=== PATIENT | female | born 1975 | race Caucasian/White ===

== ENCOUNTER 2019-12-08 22:21 | Inpatient (IN) ==
[2019-12-08] MEDS ORDERED: Isovue-370 500 ML BOTTLE IVP ONE (22:46)
[2019-12-08 22:59] LABS: Basophils # 0.1 K/mcL (0.0-0.2); Basophils % 0.7 %; Eosinophils # 0.5 K/mcL (0.0-0.6); Eosinophils % 4.5 %; Hemoglobin 13.6 g/dL (11.5-15.4); Immature Granulocytes % 0.8 % (0-4); Lymphocytes % 18.8 %; Mean Corpuscular HGB Conc 33.2 g/dL (31.6-35.5); Mean Corpuscular Hemoglobin 29.6 pg (28.0-33.3); Mean Corpuscular Volume 89.3 fL (83.0-100.0); Monocytes # 0.9 K/mcL (0.0-1.3); Neutrophils # 7.2 K/mcL (1.6-8.9); Platelet Count 196 K/mcL (140-400); Red Blood Count 4.59 M/mcL (3.82-4.97); Red Cell Distribution Width 15.7 % (11.5-14.5); Segmented Neutrophils % 67.2 %; White Blood Count 10.7 K/mcL (4.3-11.1)
[2019-12-08 23:08] LABS: Activated Partial Thrombo Time 32.3 Seconds (26.0-36.0)
[2019-12-08] MEDS ORDERED: Lactulose Oral Soln 20 GM/30 ML UDC PO ONE (23:14)
[2019-12-08 23:31] LABS: Hepatitis B Surface Antigen Nonreactive (Nonreactive)
[2019-12-08 23:33] LABS: Alanine Aminotransferase 927 Units/L (7-52); Albumin 3.6 g/dL (3.5-5.7); Albumin/Globulin Ratio 1.3 (1.1-2.2); Alkaline Phosphatase 280 Units/L (34-104); Aspartate Amino Transferase 1343 Units/L (13-39); BUN/Creatinine Ratio 15 (6-26); Bilirubin,Direct 6.4 mg/dL (0.0-0.2); Bilirubin,Indirect 3.5 mg/dL (0.0-1.0); Bilirubin,Total 9.9 mg/dL (0.3-1.0); Blood Urea Nitrogen 9 mg/dL (6-20); Calcium 8.2 mg/dL (8.6-10.3); Carbon Dioxide 20 mEq/L (23-29); Chloride 109 mEq/L (98-107); Creatine Kinase 30 Units/L (30-223); Globulin 2.7 g/dL (2.4-3.5); Glucose 105 mg/dL (70-105); Lipase 60 Units/L (11-82); Osmolality,Calculated 283 (280-300); Potassium 3.4 mEq/L (3.5-5.1); Sodium 137 mEq/L (136-145); Total Protein 6.3 g/dL (6.4-8.9); Troponin I < 0.03 ng/mL (< 0.04); eGFR For African Americans > 60 (> 60); eGFR For Non-African Americans > 60 (> 60)
[2019-12-09] MEDS ORDERED: 0.9 % Sodium Chloride 1,000 ML IVC ONE
[2019-12-09 00:01] LABS: Hepatitis B Core IgM Nonreactive (Nonreactive)
[2019-12-09 00:02] LABS: Hepatitis A Antibody IgM Nonreactive (Nonreactive)
[2019-12-09 00:07] LABS: Prothrombin Time 11.6 Seconds (9.4-12.1)
[2019-12-09 00:10] LABS: Acetaminophen < 10 mcg/mL (10-20)
[2019-12-09 00:11] LABS: Bilirubin,Urine Large (Negative); Blood,Urine Negative (Negative); Clarity,Urine Clear (Clear); Color,Urine Orange (Yellow); Glucose,Urine (UA) Normal (Normal); Ketones,Urine Negative (Negative); Leukocyte Esterase,Urine Negative (Negative); Nitrite,Urine Negative (Negative); PH,Urine 6.5 pH Units (5.0-8.0); Protein,Urine Negative (Neg-Trace); Specific Gravity,Urine 1.016 (1.010-1.025); Urobilinogen,Urine Normal (Normal)
[2019-12-09] MEDS ORDERED: Famotidine 20 MG/2 ML VIAL IVP ONE (01:08)
[2019-12-09] MEDS ORDERED: Pantoprazole 40 MG VIAL IVP ONE (01:08)
[2019-12-09 01:14] LABS: Hepatitis C Virus Antibody Reactive (Nonreactive)
[2019-12-09] MEDS ORDERED: Naloxone 0.4 MG/ML INJ IVP PRN (02:57)
[2019-12-09] MEDS ORDERED: Ondansetron 4 MG/2 ML VIAL IVP PRN (02:57)
[2019-12-09] MEDS: Nicotine 21 MG PATCH.TD24 TD SCH (05:00)
[2019-12-09 08:54] LABS: Basophils # 0.1 K/mcL (0.0-0.2); Basophils % 0.6 %; Eosinophils # 0.4 K/mcL (0.0-0.6); Eosinophils % 4.3 %; Hematocrit 40.2 % (35.3-44.9); Hemoglobin 13.3 g/dL (11.5-15.4); Immature Granulocytes % 0.9 % (0-4); Lymphocytes # 1.9 K/mcL (0.6-4.6); Lymphocytes % 21.9 %; Mean Corpuscular HGB Conc 33.1 g/dL (31.6-35.5); Mean Corpuscular Hemoglobin 29.5 pg (28.0-33.3); Mean Corpuscular Volume 89.1 fL (83.0-100.0); Mean Platelet Volume 11.9 fL (9.4-12.4); Monocytes # 0.7 K/mcL (0.0-1.3); Monocytes % 8.4 %; Neutrophils # 5.4 K/mcL (1.6-8.9); Platelet Count 170 K/mcL (140-400); Red Blood Count 4.51 M/mcL (3.82-4.97); Red Cell Distribution Width 15.9 % (11.5-14.5); Segmented Neutrophils % 63.9 %; White Blood Count 8.5 K/mcL (4.3-11.1)
[2019-12-09 08:56] LABS: INR 1.1; Prothrombin Time 12.9 Seconds (9.4-12.1)
[2019-12-09 08:59] LABS: Activated Partial Thrombo Time 34.4 Seconds (26.0-36.0)
[2019-12-09 09:20] LABS: Alanine Aminotransferase 859 Units/L (7-52); Albumin 3.1 g/dL (3.5-5.7); Albumin/Globulin Ratio 1.3 (1.1-2.2); Alkaline Phosphatase 239 Units/L (34-104); Aspartate Amino Transferase 1315 Units/L (13-39); BUN/Creatinine Ratio 13 (6-26); Bilirubin,Direct 6.3 mg/dL (0.0-0.2); Bilirubin,Indirect 3.3 mg/dL (0.0-1.0); Bilirubin,Total 9.6 mg/dL (0.3-1.0); Blood Urea Nitrogen 7 mg/dL (6-20); Calcium 8.1 mg/dL (8.6-10.3); Carbon Dioxide 20 mEq/L (23-29); Chloride 113 mEq/L (98-107); Globulin 2.3 g/dL (2.4-3.5); Glucose 88 mg/dL (70-105); Magnesium 1.9 mg/dL (1.6-2.6); Osmolality,Calculated 287 (280-300); Potassium 3.5 mEq/L (3.5-5.1); Sodium 140 mEq/L (136-145); Total Protein 5.4 g/dL (6.4-8.9); eGFR For African Americans > 60 (> 60); eGFR For Non-African Americans > 60 (> 60)
[2019-12-09] MEDS: Pantoprazole 40 MG VIAL IVP SCH (18:28)
[2019-12-10] MEDS ORDERED: Albuterol 2.5 MG/3 ML NEBULIZER IH PRN (00:34)
[2019-12-10] MEDS: Pantoprazole 40 MG VIAL IVP SCH ×2 (05:17→17:41)
[2019-12-10] MEDS: Nicotine 21 MG PATCH.TD24 TD SCH (07:29)
[2019-12-10] MEDS ORDERED: diazePAM 10 MG TABLET PO PRN (08:29)
[2019-12-10 08:57] LABS: White Blood Count 9.4 K/mcL (4.3-11.1)
[2019-12-10 08:58] LABS: Basophils # 0.1 K/mcL (0.0-0.2); Basophils % 0.6 %; Eosinophils # 0.4 K/mcL (0.0-0.6); Eosinophils % 4.1 %; Hematocrit 37.4 % (35.3-44.9); Hemoglobin 12.9 g/dL (11.5-15.4); Immature Granulocytes % 0.7 % (0-4); Lymphocytes # 1.8 K/mcL (0.6-4.6); Lymphocytes % 18.9 %; Mean Corpuscular HGB Conc 34.5 g/dL (31.6-35.5); Mean Corpuscular Hemoglobin 29.6 pg (28.0-33.3); Mean Corpuscular Volume 85.8 fL (83.0-100.0); Mean Platelet Volume 12.2 fL (9.4-12.4); Monocytes # 0.9 K/mcL (0.0-1.3); Monocytes % 9.9 %; Neutrophils # 6.1 K/mcL (1.6-8.9); Platelet Count 178 K/mcL (140-400); Red Blood Count 4.36 M/mcL (3.82-4.97); Red Cell Distribution Width 16.2 % (11.5-14.5); Segmented Neutrophils % 65.8 %
[2019-12-10] MEDS ORDERED: *HR* Propofol 200 MG/20 ML VIAL IVP ONE (08:59)
[2019-12-10] MEDS: Multivit/Ca/Min/Fe/FA 1 TAB TABLET PO SCH (09:15)
[2019-12-10] MEDS: FLUoxetine 20 MG CAPSULE PO SCH (09:15)
[2019-12-10] MEDS: BuPROPion XL (24 HR) 150 MG TABLET PO SCH (09:15)
[2019-12-10 09:36] LABS: Alanine Aminotransferase 891 Units/L (7-52); Albumin 3.2 g/dL (3.5-5.7); Albumin/Globulin Ratio 1.5 (1.1-2.2); Alkaline Phosphatase 244 Units/L (34-104); Aspartate Amino Transferase 1356 Units/L (13-39); BUN/Creatinine Ratio 12 (6-26); Bilirubin,Total 10.6 mg/dL (0.3-1.0); Blood Urea Nitrogen 8 mg/dL (6-20); Calcium 8.1 mg/dL (8.6-10.3); Carbon Dioxide 22 mEq/L (23-29); Chloride 110 mEq/L (98-107); Globulin 2.1 g/dL (2.4-3.5); Glucose 112 mg/dL (70-105); Osmolality,Calculated 285 (280-300); Potassium 3.4 mEq/L (3.5-5.1); Sodium 138 mEq/L (136-145); Total Protein 5.3 g/dL (6.4-8.9); eGFR For African Americans > 60 (> 60); eGFR For Non-African Americans > 60 (> 60)
[2019-12-10] MEDS: 0.9 % Sodium Chloride 1,000 ML IVC SCH (11:31)
[2019-12-10] MEDS ORDERED: 0.9 % Sodium Chloride 500 ML IVC SCH (12:15)
[2019-12-10] MEDS: cloNIDine HCL 0.1 MG TABLET PO SCH (20:47)
[2019-12-11] MEDS: 0.9 % Sodium Chloride 1,000 ML IVC SCH ×2 (00:41→15:33)
[2019-12-11 08:52] LABS: Hematocrit 36.8 % (35.3-44.9); Hemoglobin 12.4 g/dL (11.5-15.4); Mean Corpuscular HGB Conc 33.7 g/dL (31.6-35.5); Mean Corpuscular Hemoglobin 29.7 pg (28.0-33.3); Mean Platelet Volume 12.1 fL (9.4-12.4); Platelet Count 140 K/mcL (140-400); Red Blood Count 4.18 M/mcL (3.82-4.97); Red Cell Distribution Width 17.1 % (11.5-14.5); White Blood Count 8.4 K/mcL (4.3-11.1)
[2019-12-11] MEDS: Nicotine 21 MG PATCH.TD24 TD SCH (08:57)
[2019-12-11] MEDS: Multivit/Ca/Min/Fe/FA 1 TAB TABLET PO SCH (08:57)
[2019-12-11] MEDS: FLUoxetine 20 MG CAPSULE PO SCH (08:57)
[2019-12-11] MEDS: BuPROPion XL (24 HR) 150 MG TABLET PO SCH (08:57)
[2019-12-11 09:44] LABS: Alanine Aminotransferase 860 Units/L (7-52); Albumin 2.8 g/dL (3.5-5.7); Albumin/Globulin Ratio 1.3 (1.1-2.2); Alkaline Phosphatase 203 Units/L (34-104); Aspartate Amino Transferase 1332 Units/L (13-39); BUN/Creatinine Ratio 17 (6-26); Bilirubin,Total 12.5 mg/dL (0.3-1.0); Blood Urea Nitrogen 10 mg/dL (6-20); Carbon Dioxide 20 mEq/L (23-29); Chloride 112 mEq/L (98-107); Globulin 2.1 g/dL (2.4-3.5); Glucose 80 mg/dL (70-105); Osmolality,Calculated 286 (280-300); Potassium 3.6 mEq/L (3.5-5.1); Sodium 139 mEq/L (136-145); Total Protein 4.9 g/dL (6.4-8.9); eGFR For African Americans > 60 (> 60); eGFR For Non-African Americans > 60 (> 60)
[2019-12-11 10:36] LABS: Immature Reticulocyte % 14.9 % (11.0-38.0); Retculocyte # 0.1 M/mcL (0.05-0.10); Reticulocyte % 2.4 % (1.6-2.8)
[2019-12-11] MEDS ORDERED: 0.9 % Sodium Chloride 500 ML ONE (13:29)
[2019-12-11] MEDS ORDERED: *HR* FentaNYL (PF) 100 MCG/2 ML VIAL IVP ONE (13:34)
[2019-12-11] MEDS ORDERED: *HR* Midazolam HCl 2 MG/2 ML VIAL IVP ONE (13:34)
[2019-12-11] MEDS: cloNIDine HCL 0.1 MG TABLET PO SCH (21:00)
[2019-12-12] MEDS: 0.9 % Sodium Chloride 1,000 ML IVC SCH (01:18)
[2019-12-12] MEDS: BuPROPion XL (24 HR) 150 MG TABLET PO SCH (07:40)
[2019-12-12] MEDS: Multivit/Ca/Min/Fe/FA 1 TAB TABLET PO SCH (07:40)
[2019-12-12] MEDS: FLUoxetine 20 MG CAPSULE PO SCH (07:40)
[2019-12-12] MEDS: Nicotine 21 MG PATCH.TD24 TD SCH (07:43)
[2019-12-12 08:33] LABS: AFP Tumor Marker Non-Pregnant 41 ng/mL (0-9); ANA IgG by ELISA NONE DETECTED (None Detected)
[2019-12-12 08:37] LABS: Hematocrit 34.4 % (35.3-44.9); Hemoglobin 11.7 g/dL (11.5-15.4); Mean Corpuscular Hemoglobin 29.4 pg (28.0-33.3); Mean Corpuscular Volume 86.4 fL (83.0-100.0); Mean Platelet Volume 12.5 fL (9.4-12.4); Platelet Count 137 K/mcL (140-400); Red Blood Count 3.98 M/mcL (3.82-4.97); Red Cell Distribution Width 17.2 % (11.5-14.5); White Blood Count 9.6 K/mcL (4.3-11.1)
[2019-12-12 08:53] LABS: F-Actin (sm muscle) Ab IgG 8 Units (0-19); Serine Protease-3 Antibody 3 AU/mL (0-19)
[2019-12-12 09:18] LABS: Alanine Aminotransferase 779 Units/L (7-52); Albumin 2.7 g/dL (3.5-5.7); Albumin/Globulin Ratio 1.5 (1.1-2.2); Alkaline Phosphatase 180 Units/L (34-104); Aspartate Amino Transferase 1173 Units/L (13-39); BUN/Creatinine Ratio 16 (6-26); Bilirubin,Total 13.4 mg/dL (0.3-1.0); Blood Urea Nitrogen 9 mg/dL (6-20); Calcium 7.6 mg/dL (8.6-10.3); Carbon Dioxide 21 mEq/L (23-29); Chloride 108 mEq/L (98-107); Globulin 1.8 g/dL (2.4-3.5); Glucose 95 mg/dL (70-105); Osmolality,Calculated 276 (280-300); Potassium 3.5 mEq/L (3.5-5.1); Sodium 134 mEq/L (136-145); Total Protein 4.5 g/dL (6.4-8.9); eGFR For African Americans > 60 (> 60); eGFR For Non-African Americans > 60 (> 60)
[2019-12-12 10:25] VITALS: BP 97/60
[2019-12-12 12:33] LABS: HCV Quant Log 7.55 log IU/mL
[2019-12-12 12:51] LABS: HCV Quant Interpretation DETECTED (Not Detected)
[2019-12-17 11:45] LABS: C282Y Hemochromatosis Mutation NEGATIVE; H63D Hemochromatosis Mutation HETEROZYGOUS; HFE Specimen Type WHOLE BLOOD; S65C Hemochromatosis Mutation NEGATIVE
== END 2019-12-12 16:02 | disposition home or self-care (01) | DRG 442 ==
LOC: EMEROOARM 22:21 → 3ANU 22:21 → SUATTDRO 12-09 02:02 → 3ANU 12-09 02:20 → SUATTDRO 12-10 12:40
PROVIDERS: ADMIT Internal Medicine; ATTEND Family Medicine
PROC: ENDOEBX (2019-12-10 10:10)
PROC: IRLIVER (2019-12-11 14:00)

== ENCOUNTER 2020-07-27 07:44 | Observation (INO) ==
[~2020-07-27 07:44] MED LIST: Famotidine 20 MG/2 ML VIAL IVP ONE
[2020-07-27] MEDS ORDERED: CeFAZolin Syr 2,000MG/20 ML 2,000 MG/20 ML SYRINGE IVPB ONE (08:13)
[2020-07-27] MEDS ORDERED: Ringers Solution, Lactated 1,000 ML IVC SCH ×2 (08:15→15:36)
[2020-07-27] MEDS ORDERED: Dexamethasone 4 MG/ML VIAL ONE (09:03)
[2020-07-27] MEDS ORDERED: Lidocaine -MPF 2% 2 ML VIAL ONE (09:03)
[2020-07-27] MEDS ORDERED: *HR* Rocuronium Bromide 50 MG/5 ML VIAL ONE (09:03)
[2020-07-27] MEDS ORDERED: *HR* Propofol 200 MG/20 ML VIAL IVP ONE (09:03)
[2020-07-27] MEDS ORDERED: *HR* Succinylcholine 200 MG/10 ML VIAL IVP ONE (09:03)
[2020-07-27] MEDS ORDERED: Lidocaine HCL 4 ML Topical Solution (Laryng-O-Jet Kit Sterile Pak) TP ONE (09:03)
[2020-07-27] MEDS ORDERED: Ondansetron 4 MG/2 ML VIAL ONE (09:03)
[2020-07-27] MEDS ORDERED: *HR* Midazolam HCl 2 MG/2 ML VIAL ONE (09:04)
[2020-07-27] MEDS ORDERED: *HR* FentaNYL (PF) 100 MCG/2 ML VIAL ONE ×2 (09:04→11:52)
[2020-07-27] MEDS ORDERED: *HR* Remifentanil 1 MG VIAL IVP ONE (09:14)
[2020-07-27] MEDS ORDERED: *HR* Phenylephrine 10 MG/ML VIAL ONE (09:20)
[2020-07-27] MEDS ORDERED: *HR* OxyCODONE ER (12 HR) 10 MG TABLET PO ONE (09:33)
[2020-07-27] MEDS ORDERED: Pregabalin 75 MG CAPSULE PO ONE (09:33)
[2020-07-27] MEDS ORDERED: Acetaminophen IV 1,000 MG/100 ML BAG IVPB ONE (09:33)
[2020-07-27] MEDS ORDERED: Scopolamine Patch 1.5 MG PATCH.TD72 TD ONE (09:33)
[2020-07-27] MEDS ORDERED: Dexamethasone 4 MG/ML VIAL IVP ONE (09:36)
[2020-07-27] MEDS ORDERED: Naloxone 0.4 MG/ML INJ IVP PRN ×2 (09:57→15:36)
[2020-07-27] MEDS ORDERED: *HR* FentaNYL (PF) 100 MCG/2 ML VIAL IVP PRN (09:57)
[2020-07-27] MEDS ORDERED: Albuterol 2.5 MG/3 ML NEBULIZER IH PRN ×2 (09:57→15:36)
[2020-07-27] MEDS ORDERED: Ondansetron 4 MG/2 ML VIAL IVP PRN ×2 (09:57→15:36)
[2020-07-27] MEDS ORDERED: Pregabalin 50 MG CAPSULE PO PRN (09:57)
[2020-07-27] MEDS ORDERED: *HR* HYDROmorphone PF 0.5 MG/0.5 ML SYRINGE IVP PRN (09:57)
[2020-07-27] MEDS ORDERED: Bacitracin 50,000 UNIT, Polymyxin B Sulfate 500,000 UNIT, Sodium Chloride IRRigation 1,... IR ONE (10:35)
[2020-07-27] MEDS ORDERED: EPHEDrine 50 MG/ML VIAL ONE (11:45)
[2020-07-27] MEDS ORDERED: *HR* HYDROMORPHONE 2 MG/ML VIAL ONE (13:47)
[2020-07-27] MEDS ORDERED: Ibuprofen 800 MG TABLET PO PRN (15:36)
[2020-07-27] MEDS ORDERED: Acetaminophen 325 MG TABLET PO PRN (15:36)
[2020-07-27] MEDS: *HR* OxyCODONE Immed Rel 5 MG TABLET PO PRN (22:36)
[2020-07-28] MEDS: *HR* OxyCODONE Immed Rel 5 MG TABLET PO PRN ×3 (05:12→19:24)
[2020-07-28] MEDS: *HR* HYDROcodone/Acet 5/325 mg TABLET PO PRN (23:10)
[2020-07-29] MEDS: *HR* OxyCODONE Immed Rel 5 MG TABLET PO PRN (04:17)
[2020-07-29] MEDS: *HR* HYDROcodone/Acet 5/325 mg TABLET PO PRN (08:45)
[2020-07-29 12:08] VITALS: BP 121/74
== END 2020-07-29 15:00 | disposition home or self-care (01) ==
LOC: SAMDAY 07:44 → 3NENU 07:44
PROVIDERS: ADMIT Orthopaedic Surgery Orthopaedic Surgery of the Spine; ATTEND Orthopaedic Surgery Orthopaedic Surgery of the Spine